=== PATIENT | female | born 1965 | race Caucasian/White ===

== ENCOUNTER 2018-07-19 05:58 | Day surgery (SDC) | payer BC ==
[~2018-07-19 05:58] MED LIST: ALLEGRA180 MG PO; ALPRAZOLAM ER0.5 MG PO; AMLODIPINE BESY10 MG PO; BUPROPION HCL150 M1 PO; HYDROCHLOROT25 MG PO; LATANOPROST0.005 % OU; MELOXICAM15 MG PO; MULTIVITAMI1 PO; POT CHLORIDE10 ME5 PO; RANITIDINE300 MG PO; SG ASA LOW81 M1 PO; TRAMADOL HYDROC50 MG PO
[2018-07-19] MEDS ORDERED: GLYCERIN1.2 GM RE (06:18)
[2018-07-19 08:03] VITALS: BP 135/74
== END 2018-07-19 08:20 | disposition home or self-care (01) | DRG 951 ==
LOC: ENDO 05:58
PROVIDERS: ATTEND Surgery
PROC: 0DJD8ZZ Inspection of Lower Intestinal Tract, Via Natural or Artificial Opening Endoscopic (ICD-10-PCS; principal; 2018-07-19)
DX: Z12.11 Encounter for screening for malignant neoplasm of colon (principal); K64.4 Residual hemorrhoidal skin tags; I10 Essential (primary) hypertension
CPT/HCPCS: G0104

== ENCOUNTER 2019-01-24 10:24 | Inpatient (IN) | payer BC ==
[~2019-01-24] VITALS: Ht 165.1 cm; Wt 96.6 kg
[~2019-01-24 10:24] MED LIST changes: +GLYCERIN1.2 GM RE; +PAIN RELIEF EX500 M1 PO
[2019-01-29 20:20] VITALS: BP 114/67
[2019-01-30] VITALS (7 sets, daily range): BP systolic 114–142; BP diastolic 57–75
[2019-01-30 05:02] LABS: HEMATOCRIT 37.3 % (37.0-47.0); HEMOGLOBIN 11.8 g/dl (12.0-16.0); MEAN CELL VOLUME 88.6 fL CALC (80.0-100.0); MEAN CORPUSCULAR HGB CONC 31.6 g/L CALC (32.0-36.0); RED BLOOD COUNT 4.21 mill/uL (4.20-5.60); RED CELL DISTRI WIDTH 13.1 % (11.5-15.5)
[2019-01-30 05:31] LABS: ANION GAP 12 (6-22 (CALC)); BUN 6 mg/dL (7-17); BUN/CREATININE RATIO 13 (12-20 (CALC)); CARBON DIOXIDE 30 mmol/l (22-30); CHLORIDE 100 mmol/l (95-108); CREATININE 0.5 mg/dL (0.5-1.0); GFR > 60 ML/MIN (>=60 (CALC)); GFR FOR AFR.AMER. > 60 ML/MIN (>=60 (CALC)); POTASSIUM 3.4 mmol/l (3.5-5.1); SODIUM 138 mmol/l (137-146)
[2019-01-31 04:15] VITALS: BP 126/73
[2019-01-31 05:34] LABS: HEMATOCRIT 36.5 % (37.0-47.0); HEMOGLOBIN 11.8 g/dl (12.0-16.0)
[2019-01-31 07:43] VITALS: BP 139/81
[2019-01-31 11:19] VITALS: BP 137/72
== END 2019-01-31 13:40 | DRG 470 ==
LOC: MS2 01-29 10:00
PROVIDERS: Internal Medicine; ADMIT Orthopaedic Surgery; ATTEND Orthopaedic Surgery
PROC: 0SRC0J9 Replacement of Right Knee Joint with Synthetic Substitute, Cemented, Open Approach (ICD-10-PCS; principal; 2019-01-29)
DX: M17.11 Unilateral primary osteoarthritis, right knee (principal); I10 Essential (primary) hypertension; K21.9 Gastro-esophageal reflux disease without esophagitis; F41.9 Anxiety disorder, unspecified; F32.9 Major depressive disorder, single episode, unspecified; Z87.891 Personal history of nicotine dependence
CPT/HCPCS: J0131; J2270